=== PATIENT | female | born 1950 | race Caucasian/White ===

== ENCOUNTER 2016-11-12 09:54 | Emergency (ER) | payer OTHER ==
[~2016-11-12] VITALS: Ht 160 cm; Wt 114.3 kg
[2016-11-12 10:09] VITALS: TEMP 36.4; Ht 160 cm; Wt 114.3 kg
[2016-11-12] MEDS ORDERED: CHOL20007 PO (10:31)
[2016-11-12] MEDS ORDERED: ASPI81TA28 PO (10:31)
[2016-11-12] MEDS ORDERED: DONE10TA12 PO (10:31)
[2016-11-12] MEDS ORDERED: CALC500C70 PO (10:31)
[2016-11-12] MEDS ORDERED: LEVO200T PO (10:31)
[2016-11-12] MEDS ORDERED: PRAV40TA PO (10:31)
[2016-11-12] MEDS ORDERED: MULT-506 PO (10:31)
[2016-11-12] MEDS ORDERED: CYAN1SUB12 PO (10:31)
[2016-11-12] MEDS ORDERED: FRS/40 PO (10:31)
[2016-11-12] MEDS ORDERED: PRT/20 PO (10:31)
[2016-11-12] MEDS ORDERED: LEVO100T PO (10:31)
[2016-11-12] MEDS ORDERED: POTA20TA16 PO (10:31)
[2016-11-12] MEDS ORDERED: NTRGSL/4 UT (10:31)
[2016-11-12] MEDS ORDERED: CLR10 PO (10:31)
[2016-11-12] MEDS ORDERED: MELO7.5T5 PO (10:31)
[2016-11-12 11:36] LABS: ISTAT CREATININE 0.6 mg/dl (0.6-1.3); ISTAT HEMOGLOBIN 13.9 g/dl (12.0-16.0); ISTAT IONIZED CALCIUM 1.13 mmol/l (1.12-1.32)
[2016-11-12] MEDS ORDERED: LORAZEPAM 0.5 MG TAB PO STA (12:08)
--- NOTE | 2016-11-12 12:23 | EMERGENCY ROOM VISIT NOTE ---
History First contact with patient: 10:34 Chief Complaint: EYE ASSESSMENT Stated Complaint: LORY KNIFE PROCEDURE 09/14 - SEEING "FLOATERS" History of Present Illness The patient is a 66 year old female who presents to the Emergency Room with complaints of floaters, flashing lights and halo. She reports first having intermittent white flashing lights yesterday afternoon. Then today noticed floaters. No current flashing lights and her floaters are just in her left eye. She recently had a gamma knife procedure for meningioma in August. She denies any fevers, chills, vision blackness/loss. No arm/leg weakness or change in sensation. No facial droop. No change in her speech or hearing. Review of Systems Chronic frontal headache secondary to meningioma, no recent change to this See HPI for pertinent positives & negatives. A total of 10 systems reviewed and were otherwise negative. Past Medical/Surgical History Medical Problems: (1) Meningioma Surgical Problems: (1) Status post gamma knife treatment Social History Smoking Status: Never Smoker Drug Use: none Occupation Status: retired Current/Historical Medications Scheduled Aspirin (Aspirin Ec), 81 MG PO DAILYBL Calcium/Vitamin D (Os-Nick 500 Plus D), 1 TAB PO BID Cholecalciferol (Vitamin D3), 2,000 UNITS PO DAILYBL Cyanocobalamin (Vitamin B-12), 2,500 MCG PO WK Donepezil Hydrochloride (Aricept), 10 MG PO DAILYBL Furosemide (Lasix), 40 MG PO BID Levothyroxine Sodium (Synthroid), 100 MCG PO 5XWK Levothyroxine Sodium (Synthroid), 200 MCG PO 2XWK Loratadine (Claritin), 10 MG PO DAILY Meloxicam (Mobic), 7.5 MG PO QPM Multivitamin (Multivitamin), 1 TAB PO DAILYBL Nitroglycerin (Nitrostat), 0.4 MG UT PRN Pantoprazole (Protonix), 20 MG PO QAM Potassium Ext Rel (Klor-Con), 20 MEQ PO DAILYBL Pravastatin Sodium (Pravachol), 40 MG PO QPM Allergies Coded Allergies: Amoxicillin (Unverified Allergy, Severe, DIARRHEA, 11/12/16) Bethanechol (Unverified Allergy, Severe, HEART RACE, 11/12/16) Clavulanic Acid (Unverified Allergy, Severe, DIARRHEA, 11/12/16) Trazodone (Unverified Allergy, Unknown, UNKNOWN, 11/12/16) Physical Exam Vital Signs Date Time Temp Pulse Resp B/P (MAP) Pulse Ox O2 Delivery O2 Flow Rate FiO2 11/12/16 14:50 70 16 110/60 97 11/12/16 14:13 68 20 102/61 94 Room Air 11/12/16 11:50 69 20 119/54 98 11/12/16 10:09 36.4 73 16 123/74 96 Room Air Right Eye Acuity: 20/40 -1 corrected Left Eye Acuity: 20/40 -2 corrected Physical Exam VITAL SIGNS: were reviewed as above. Visual acuity as above GENERAL:no acute distress SKIN: Warm dry and pink, no rashes HEAD: Normocephalic and atraumatic EYES: extraocular muscles intact without diplopia or pain, floater in left eye only, pupils equal and reactive to light Slit lamp - conjunctival white, AC quiet, pupils round Panoptic - B/l C/D <0.5, no papilledema, macular appears normal, no retinal detachment seen but limited views to macula and optic nerve Pressures 12.3 Right eye, 11.8 Left eye OROPHARYNX: non erythematous, clear and moist LUNGS: clear to auscultation, no accessory muscle use HEART: Regular rate and rhythm, heart sounds 1+2, no murmurs ABDOMEN: Soft and nontender, bowel sounds normal EXTREMITIES: Warm and well perfused, no calf tenderness/swelling, no pedal edema NEUROLOGICALLY: Awake alert and oriented without upper or lower limb focal deficit. CN 2-12 intact. Cerebellar testing is within normal limits. There is no nystagmus. There is no facial droop. Speech is clear. Vision is grossly normal. Medical Decision & Procedures ER Provider Diagnostic Interpretation: Brain MRI WITH AND WITHOUT CONTRAST HISTORY: known meningioma, left eye floaters and flashing lights TECHNIQUE: Multiplanar multisequence MRI of the brain was performed both before and after the intravenous administration of contrast. COMPARISON STUDY: None. FINDINGS: Within the right frontal lobe there is an extra-axial slightly T2 hyperintense, T1 hypointense enhancing mass with an associated enhancing dural tail. This measures 2.9 x 2.2 x 1.8 cm. This demonstrates restricted diffusion and is consistent with a meningioma. There is mild mass effect along the right frontal lobe and mild surrounding vasogenic there is no hematoma, midline shift, acute infarct. The paranasal sinuses and mastoid air cells are clear. The major vascular flow-voids at the skull base are well-maintained. The ventricles are normal in size. The midline structures are intact. IMPRESSION: 1. A 2.9 x 2.2 x 1.8 cm right frontal extra-axial masses as described above. This likely represents a meningioma. There is mild surrounding vasogenic edema. 2. No acute infarct. Electronically signed by: Ryan Bernabe M.D. 11/12/2016 1:35 PM Dictated Date/Time: 11/12/2016 1:27 PM Laboratory Results Test 11/12/16 11:25 Bedside Hemoglobin 13.9 g/dl (12.0-16.0) Bedside Hematocrit 41 % (37-47) Bedside Sodium 142 mEq/L (135-144) Bedside Potassium 3.8 mEq/L (3.3-5.0) Bedside Chloride 101 mEq/L (101-112) Bedside Total CO2 31 mEq/l (24-31) Anion Gap 15.0 mmol/L (16-25) Bedside Blood Urea Nitrogen 19 mg/dl (7-18) Bedside Creatinine 0.6 mg/dl (0.6-1.3) Bedside Glucose (other) 88 mg/dl (70-99) Bedside Ionized Calcium (Evelio) 1.13 mmol/l (1.12-1.32) Medications Administered Medications (Trade) Dose Ordered Sig/Devon Route Start Time Stop Time Status Last Admin Dose Admin Lorazepam (Ativan Tab) 0.5 mg NOW STAT PO 11/12/16 12:08 11/12/16 12:09 DC 11/12/16 12:29 0.5 MG ED Course Complete history and physical performed Discussed with Dr Gonzáles who separately performed history and physical Reassessed following MRI and no change in her floaters, no longer having any flashing lights. Medical Decision Prior records/ancillary studies reviewed. Triage Nursing notes reviewed. The patient's history was concerning for vision changes s/p gamma knife radiotherapy Differential diagnosis: Etiologies such as retinal detachment, glaucoma, infection, optic neuritis, keratitis, iritis, endophthalmitis, lens dislocation, elevated intracranial pressure as well as others were entertained. Physical examination: As above. Normal examination and pressures. Diagnostics: MRI: showed meningioma with mass effect and surrounding edema but no acute pathology to explain her left eye symptoms iSTAT releaved normal renal function, electrolytes and hemoglobin It appears the patient had a posterior vitreous detachment. By the evaluation outlined above emergent etiologies such as infection, hypoglycemia, electrolyte abnormalities, cardiac sources, intracerebral event, toxicologic, neurologic,as well as others were deemed relatively unlikely. The patient informed about the findings as listed above. All questions were answered and she was pleased with the management plan. Return instructions were outlined and the patient was discharged in stable condition. She declined follow up in [place]. She will call her construction mgr in [place] in the morning to arrange an appointment the same day for complete check of retina. Impression Primary Impression: Posterior vitreous detachment of left eye Departure Information Dispostion Home / Self-Care Condition GOOD Referrals Geraldine Meneses PA-C (PCP) Patient Instructions My [facility] Additional Instructions You were evaluated in the ER for left eye floaters and flashing lights. Due to meningioma and recent gamma knife surgery in September 14 2016 an MRI brain was done to assess for intracranial problems. This showed your known meningioma with surrounding edema but no new pathology. This is unlikely to be the cause of your current symptoms. Most likely cause is posterior vitreous detachment which is due to the natural shrinkage of the vitreous humor of the eye. There are potential complication of this however which were not seen on examination today but you should follow up with an construction mgr as below. Take Ibuprofen or Tylenol (age and/or weight specific) as needed for pain, discomfort, and fevers. Make a follow-up appointment with your construction mgr to follow up tomorrow for a recheck of your eye. If you have vision loss, eye pain, sudden increase in floaters or flashing lights, increasing headache, discomfort, fevers, or difficulty swallowing, difficulty breathing, chest pain, recurrent vomiting or diarrhea, come back to the Emergency Department. Resident Tracking Resident Involvement: Resident Care Provided Care Provided: Adult ED
[2016-11-12] MEDS ORDERED: GADAVIST IV PRN (13:15)
--- NOTE | 2016-11-12 13:36 | DIAGNOSTIC IMAGING REPORT ---
Brain MRI WITH AND WITHOUT CONTRAST HISTORY: known meningioma, left eye floaters and flashing lights TECHNIQUE: Multiplanar multisequence MRI of the brain was performed both before and after the intravenous administration of contrast. COMPARISON STUDY: None. FINDINGS: Within the right frontal lobe there is an extra-axial slightly T2 hyperintense, T1 hypointense enhancing mass with an associated enhancing dural tail. This measures 2.9 x 2.2 x 1.8 cm. This demonstrates restricted diffusion and is consistent with a meningioma. There is mild mass effect along the right frontal lobe and mild surrounding vasogenic there is no hematoma, midline shift, acute infarct. The paranasal sinuses and mastoid air cells are clear. The major vascular flow-voids at the skull base are well-maintained. The ventricles are normal in size. The midline structures are intact. IMPRESSION: 1. A 2.9 x 2.2 x 1.8 cm right frontal extra-axial masses as described above. This likely represents a meningioma. There is mild surrounding vasogenic edema. 2. No acute infarct. Electronically signed by: Ryan Bernabe M.D. 11/12/2016 1:35 PM Dictated Date/Time: 11/12/2016 1:27 PM
[2016-11-12] MEDS ORDERED: ONDANSETRON HOME PACK 4MG OD TAB PO ONE (14:15)
[2016-11-12 14:50] VITALS: BP 110/60; PULSE 70; O2SAT 97
--- NOTE | 2016-12-16 14:32 | EMERGENCY ROOM VISIT NOTE ---
ED Visit Note First contact with patient: 10:34 Resident Physician Supervision Note: I interviewed and examined the patient. Discussed with Dr. Ibarra and agree with findings and plan as documented in the note. Any exceptions or clarifications are listed here: [None] Pt was evaluated and felt to require MRI to r/o IC abnormality. MRI reveals: IMPRESSION: 1. A 2.9 x 2.2 x 1.8 cm right frontal extra-axial masses as described above. This likely represents a meningioma. There is mild surrounding vasogenic edema. 2. No acute infarct. This is likely mildly edematous secondary to recent gamma knife therapy. I fell this is likely unrelated to visual changes. She would like f/u with her passenger conductor at home. Pt was d/c to f/u tomorrow and will return to the ED for worsening of symptoms or any medical concerns. Documented By: Dannielle Gonzáles
== END 2016-11-12 14:50 | disposition home or self-care (01) ==
LOC: C.EDB 09:57 → C.EDC 14:50
DX: H43.812 Vitreous degeneration, left eye (principal); Z85.89 Personal history of malignant neoplasm of other organs and systems; Z98.890 Other specified postprocedural states; Z79.82 Long term (current) use of aspirin; Z79.899 Other long term (current) drug therapy; Z88.1 Allergy status to other antibiotic agents; Z88.8 Allergy status to other drugs, medicaments and biological substances